=== PATIENT | male | born 1970 | race Caucasian/White ===

== ENCOUNTER 2022-01-18 16:13 | Inpatient (IN) | payer MEDICARE, OTHER ==
[~2022-01-18] VITALS: Ht 172.7 cm; Wt 81.6 kg
--- NOTE | 2022-01-18 16:36 | NUR ---
START UP SPECIALIST NOTES RECEIVED PT FROM 2 AMBULANCE PERSONNEL VIA [facility], PT IS AWAKE, SLIGHTLY SLEEPY, EASY TO AROUSE, NON VERBAL, NO SIGN OF PAIN OR DISTRESS, ASSISTED TO BED, MADE COMFORTABLE, ROOM SET UP ORIENTATION PROVIDED TO PT, REPOSITIONED FOR COMFORT, AV SHUNT TO LEFT UPPER ARM INTACT, NO BLEEDING NOTED, CALL LIGHT WITHIN REACH, VITALS TAKEN AND RECORDED, DR. VELASCO INFORMED OF PT'S ARRIVAL TO UNIT, AWAITING ADMITTING ORDERS, KEPT PT WARM AND COMFORTABLE IN BED.
--- NOTE | 2022-01-18 16:44 | NUR ---
TRANSFORMER TESTER NOTES PT SEEN AND EXAMINED BY DR. VELASCO, PT HAS SOME JERKY, TWITCHY MOVEMENTS WHEN REPOSITIONED, MD AWARE, MD ORDERED NGT PLACEMENT, ORDERS NOTED.
[2022-01-18] MEDS ORDERED: LORAZEPAM INJ 2 MG/ML VIAL IV PRN (17:00)
[2022-01-18] MEDS ORDERED: ONDANSETRON HCL/PF 4 MG/2 ML VIAL IVP PRN (17:00)
--- NOTE | 2022-01-18 17:49 | NUR ---
FEATURE WRITER NOTES ATTEMPTED NGT PLACEMENT, PT RESISTING IT, PUSHES IT AWAY AND FIGHTING IT, DR. VELASCO INFORMED AND ORDERED TO GIVE HALDOL 2MG IM ONE TIME, NOTED AND CARRIED OUT.
[2022-01-18] MEDS ORDERED: HALOPERIDOL LACTATE INJ 5 MG/ML VIAL IM ONE (18:00)
[2022-01-18] MEDS: IV D5/0.45 NACL 1,000 ML IV PRN (18:10)
[2022-01-18] MEDS: LACTULOSE 10 G/15 ML UDC (PYXIS) PO SCH ×2 (18:48→22:45)
[2022-01-18] MEDS ORDERED: GABA300C PO (18:56)
[2022-01-18] MEDS ORDERED: BUME2TAB7 PO (18:56)
[2022-01-18] MEDS ORDERED: PANT40TA49 PO (18:56)
[2022-01-18] MEDS ORDERED: CALC667C6 PO (18:56)
[2022-01-18] MEDS ORDERED: RIFA550T PO (18:56)
[2022-01-18] MEDS ORDERED: FOLI0.8T2 PO (18:56)
[2022-01-18] MEDS ORDERED: FLUT16SP16 (18:56)
[2022-01-18] MEDS ORDERED: AMLO-213 PO (18:56)
[2022-01-18] MEDS ORDERED: SEVE2.4P3 PO (18:56)
[2022-01-18] MEDS ORDERED: CARV12.52 PO (18:56)
[2022-01-18] MEDS ORDERED: TAMS-12 PO (18:56)
[2022-01-18] MEDS ORDERED: LACT10SO3 PO (18:56)
[2022-01-18] MEDS ORDERED: SUCR500T PO (18:56)
[2022-01-18] MEDS ORDERED: CETI10TA14 PO (18:56)
--- NOTE | 2022-01-18 19:00 | NUR ---
ALIGNING CHECKER NOTES PT IN BED, ASLEEP, EASILY AROUSABLE TO NAME, NODS HEAD WHEN ASKED, NON VERBAL, PER DR. VELASCO, OK TO ADMINISTER MED BY MOUTH IF MORE AWARE, PLACED PT ON A SITTING POSITION, PT ABLE TO TAKE MEDS BY MOUTH WITHOUT DIFFICULTY, ASPIRATION PRECAUTIONS OBSERVED.
[2022-01-18 20:00] VITALS: BP 143/75
--- NOTE | 2022-01-18 20:08 | NUR ---
RN OPENING NOTE PATIENT ASLEEP IN BED. A/OX0; MUMBLES. NO S/S OF DISTRESS, BREATHING WITHOUT DIFFICULTY ON ROOM AIR. RFA #18 INTACT AND PATENT W/ D5-1/2NS 75 ML/HR. TELE READS SR 65. SAFETY MEASURES IN PLACE: BED LOCKED IN LOWEST POSITION, RAILS UP X2, CALL LOPEZ WITHIN REACH. WILL CONTINUE TO MONITOR PATIENT.
[2022-01-19] VITALS: BP 137/63
[2022-01-19 04:00] VITALS: BP 140/68
[2022-01-19] MEDS: LACTULOSE 10 G/15 ML UDC (PYXIS) PO SCH ×4 (04:41→22:20)
--- NOTE | 2022-01-19 05:59 | NUR ---
RN NOTE PATIENT HAS PULLED OUT HIS IV, RAC #20. ALL IV ITEMS ACCOUNTED FOR INCLUDING IV CATH INTACT. PRESSURE DRESSING APPLIED. NEW IV ACCESS SUCCESSFULLY ADMINISTERED AT R-HAND #20. PATIENT O/W STABLE; WILL CONTINUE TO MONITOR PATIENT.
[2022-01-19 06:05] LABS: BASOPHILS # (AUTO) 0.1 K/uL (0.0-0.2); BASOPHILS % (AUTO) 2.5 % (0.0-2.0); EOSINOPHILS % (AUTO) 7.7 % (0.0-6.0); HEMATOCRIT 30 % (39-51); HEMOGLOBIN 10.6 g/dL (13.5-17.5); LYMPHOCYTES # (AUTO) 1.2 K/uL (0.8-4.8); LYMPHOCYTES % (AUTO) 24.3 % (20.0-44.0); MEAN CORPUSCULAR HGB CONC 35 g/dl (31.0-36.0); MEAN CORPUSCULAR VOLUME 91 fL (80-96); MONOCYTES # (AUTO) 0.5 K/uL (0.1-1.30); MONOCYTES % (AUTO) 9.9 % (2.0-12.0); NEUTROPHILS # (AUTO) 2.8 K/uL (1.8-8.9); NEUTROPHILS % (AUTO) 55.6 % (43.0-81.0); PLATELET COUNT (AUTO) 172 K/uL (150-450); WHITE BLOOD COUNT (AUTO) 5.1 K/uL (4.3-11.0)
[2022-01-19 06:19] LABS: CALCIUM, SERUM 9.2 mg/dL (8.5-10.1); MAGNESIUM 2.7 mg/dL (1.8-2.4); PHOSPHORUS 6.3 mg/dL (2.5-4.9); POTASSIUM 3.8 mmol/L (3.5-5.1)
[2022-01-19 06:25] LABS: CREATININE 9.2 mg/dL (0.6-1.3)
[2022-01-19 06:26] LABS: THYROID STIMULATING HORMONE 2.147 uIU/mL (0.358-3.74)
--- NOTE | 2022-01-19 06:29 | NUR ---
RN NOTE LAB CALLED WITH CRITICAL VALUE OF SERUM CREATININE OF 9.2. ON-CALL KASEY OVALLES, NOTIFIED. AWAITING ANY ORDERS AT THIS TIME. PATIENT O/W STABLE. WILL CONTINUE TO MONITOR.
--- NOTE | 2022-01-19 06:42 | NUR ---
RN CLOSING NOTE PATIENT ASLEEP IN BED. EYE OPENING WITH MUMBLING. NO S/S OF DISTRESS, BREATHING WITHOUT DIFFICULTY ON 2L NC. R-HAND #20 INTACT AND PATENT W/ D5-1/2NS @75ML/HR. RONALDO AV SHUNT INTACT AND WITHOUT SIGNS OF BLEEDING. TELE READS SB 64. SAFETY MEASURES IN PLACE: BED LOCKED AND AT LOWEST POSITION, RAILS UP X2, CALL LOPEZ WITHIN REACH. WILL ENDORSE TO NEXT SHIFT FOR LUIS EDUARDO.
--- NOTE | 2022-01-19 07:35 | NUR ---
ALARM MECHANISM ADJUSTER OPENING NOTE PATIENT ASLEEP IN BED. A/OX0; EASILY AWAKEN. NO S/S OF DISTRESS NOR SOB, BREATHING WITHOUT DIFFICULTY ON ROOM AIR. WITH R HAND G#2, INTACT AND PATENT DRAINING D5-1/2 NS 75 ML/HR. TELEMONITORING READS SINUS RHYTHM AT 83 BPM. SAFETY MEASURES IN PLACE: BED LOCKED IN LOWEST POSITION, RAILS UP X2, CALL LOPEZ AND TRAY WITHIN REACH. WILL CONTINUE TO MONITOR PATIENT.
[2022-01-19 08:00] VITALS: BP 139/70
[2022-01-19] MEDS: PANTOPRAZOLE 40 MG VIAL IV SCH (08:17)
[2022-01-19 16:00] VITALS: BP 148/81
[2022-01-19] MEDS: IV D5/0.45 NACL 1,000 ML IV PRN (16:40)
--- NOTE | 2022-01-19 19:08 | NUR ---
ASSEMBLY LINE INSPECTOR CLOSING NOTE PATIENT ASLEEP IN BED. A/OX0; EASILY AWAKEN. NO S/S OF DISTRESS NOR SOB, BREATHING WITHOUT DIFFICULTY ON ROOM AIR. NPO WAS MAINTAINED, PATIENT WAS ABLE TO TAKE LACTULOSE BUT WASNT ABLE TO PASS STOOL YET. WITH R HAND G#2, INTACT AND PATENT DRAINING D5-1/2 NS 75 ML/HR. TELEMONITORING READS SINUS RHYTHM AT 83 BPM. SAFETY MEASURES MAINTAINED: BED LOCKED IN LOWEST POSITION, RAILS UP X2, CALL LOPEZ AND TRAY WITHIN REACH. WILL ENDORSE TO DEALER SUPPORT TECHNICIAN NURSE.
--- NOTE | 2022-01-19 19:30 | NUR ---
RN OPENING NOTE PATIENT IN BED, AWAKE. PATIENT IS CONFUSED. PATIENT IS ON RA, BREATHING EVEN AND UNLABORED. NO SOB NOTED, NOT IN ANY RESPIRATORY DISTRESS. PATIENT IS NPO AT THIS TIME. R HAND G 20 WITH ONGOING D5 1/2 NS AT 75 ML/HR, INFUSING WELL. PATIENT NOT IN PAIN VIA FLACC. PER JULIO CÉSAR RN, THEY WERE UNABLE TO INSERT NGT D/T PATIENT BEING COMBATIVE, BUT WERE ABLE TO GIVE MEDS PO. SAFETY MEASURES IN PLACE: BED LOCKED AND IN LOWEST POSITION, CALL LIGHT WITHIN REACH, SIDE RAILS UP. WILL MONITOR PATIENT CLOSELY.
[2022-01-19 20:00] VITALS: BP 114/64
[2022-01-20] VITALS: BP 144/71
[2022-01-20 04:00] VITALS: BP 136/71
[2022-01-20] MEDS: LACTULOSE 10 G/15 ML UDC (PYXIS) PO SCH ×5 (04:31→23:28)
[2022-01-20] MEDS: IV D5/0.45 NACL 1,000 ML IV PRN ×2 (04:36→20:34)
[2022-01-20 06:42] LABS: ALBUMIN 3.4 g/dL (3.4-5.0); CALCIUM, SERUM 9.2 mg/dL (8.5-10.1); MAGNESIUM 2.8 mg/dL (1.8-2.4); POTASSIUM 3.8 mmol/L (3.5-5.1); TOTAL PROTEIN, SERUM 7.5 g/dL (6.4-8.2)
[2022-01-20 06:52] LABS: CREATININE 11.9 mg/dL (0.6-1.3)
--- NOTE | 2022-01-20 07:22 | NUR ---
RN CLOSING NOTE PATIENT IN BED, EYES CLOSED, EASILY AWAKENED. PATIENT REMAINS CONFUSED. PATIENT IS ON RA, BREATHING EVEN AND UNLABORED. NO SOB NOTED, NOT IN ANY RESPIRATORY DISTRESS. PATIENT IS NPO AT THIS TIME. R HAND G 20 WITH ONGOING D5 1/2 NS AT 75 ML/HR, INFUSING WELL. PATIENT NOT IN PAIN VIA FLACC. SAFETY MEASURES IN PLACE: BED LOCKED AND IN LOWEST POSITION, CALL LIGHT WITHIN REACH, SIDE RAILS UP. ALL NEEDS MET AND ATTENDED. ALL ORDERS CARRIED OUT. WILL ENDORSE TO DAY SHIFT NURSE FOR LUIS EDUARDO.
--- NOTE | 2022-01-20 07:35 | NUR ---
MINIATURE SET DESIGNER OPENING NOTE PATIENT AWAKE IN BED. A/OX1, PATIENT IS CONFUSED. NO S/S OF DISTRESS NOR SOB, BREATHING WITHOUT DIFFICULTY ON ROOM AIR. WITH R HAND G#20 INTACT AND PATENT DRAINING D5-1/2 NS 75 ML/HR. TELEMONITORING READS SINUS RHYTHM AT 85 BPM. SAFETY MEASURES IN PLACE: BED LOCKED IN LOWEST POSITION, RAILS UP X2, CALL LOPEZ AND TRAY WITHIN REACH. FOR HD TODAY. WILL CONTINUE TO MONITOR PATIENT.
[2022-01-20 08:00] VITALS: BP 160/92
[2022-01-20] MEDS: PANTOPRAZOLE 40 MG VIAL IV SCH (08:23)
[2022-01-20 10:00] LABS: BASOPHILS # (AUTO) 0.1 K/uL (0.0-0.2); BASOPHILS % (AUTO) 1.7 % (0.0-2.0); EOSINOPHILS % (AUTO) 9.5 % (0.0-6.0); HEMATOCRIT 30 % (39-51); HEMOGLOBIN 10.2 g/dL (13.5-17.5); LYMPHOCYTES # (AUTO) 1.7 K/uL (0.8-4.8); LYMPHOCYTES % (AUTO) 28.8 % (20.0-44.0); MEAN CORPUSCULAR HGB CONC 35 g/dl (31.0-36.0); MEAN CORPUSCULAR VOLUME 91 fL (80-96); MONOCYTES # (AUTO) 0.5 K/uL (0.1-1.30); NEUTROPHILS # (AUTO) 3.1 K/uL (1.8-8.9); PLATELET COUNT (AUTO) 171 K/uL (150-450); RED BLOOD CELL COUNT(AUTO) 3.25 MIL/uL (4.5-6.0)
[2022-01-20 16:00] VITALS: BP 184/91
--- NOTE | 2022-01-20 17:05 | NUR ---
RN NOTES - HELD LACTULOSE AT 1700 PER HD RN'S RECOMMENDATION.
--- NOTE | 2022-01-20 19:05 | NUR ---
MS RN CLOSING NOTE PATIENT AWAKE IN BED. A/OX1, S/P POST HD WITH 2L FLUIDS OUT. NO S/S OF DISTRESS NOR SOB, BREATHING WITHOUT DIFFICULTY ON ROOM AIR. WITH R HAND G#20 SL, PATENT/INTACT WITH L AV FISTULA. ALL NEEDS MET, ALL MEDS GIVEN. SAFETY MEASURES MAINTAINED: BED LOCKED IN LOWEST POSITION, RAILS UP X2, CALL LOPEZ AND TRAY WITHIN REACH. FOR HD TODAY. ENDORSED TO FOREIGN BANKNOTE TELLER TRADER NURSE.
--- NOTE | 2022-01-20 19:46 | NUR ---
RN OPENING NOTE; RECEIVED PATIENT IN BED AAOX2 WITH CONFUSED.THEO WELL ON RA,NO SIGN SOB/DISTRESS NOTED,BREATHING EVEN AND UNLABORED.PATIENT IS NPO AT THIS TIME. R HAND G 20 WITH ONGOING D5 1/2 NS AT 75 ML/HR, INFUSING WELL.NO SIGN OF PAIN/DISCOMFORT AT THIS TIME,SAFETY MEASURES IN PLACE: BED LOCKED AND IN LOWEST POSITION, CALL LIGHT WITHIN REACH, SIDE RAILS UP. WILL CONTINUE TO MONITOR .
[2022-01-20 20:00] VITALS: BP 165/90
[2022-01-21] MEDS: LACTULOSE 10 G/15 ML UDC (PYXIS) PO SCH ×3 (05:32→16:18)
--- NOTE | 2022-01-21 06:16 | NUR ---
RN CLOSING NOTEDS; PATIENT IN BED AAOX2 WITH CONFUSED.THEO WELL ON RA,NO SIGN SOB/DISTRESS NOTED,BREATHING EVEN AND UNLABORED.NO COMPLAIN FOR PAIN/DISCOMFORT DURING SHIFT,DUE MEDS GIVEN ORDER,ALL NEEDS ATTENDED,R HAND G 20 WITH ONGOING D5 1/2 NS AT 75 ML/HR, INFUSING WELL.SAFETY MEASURES IN PLACE: BED LOCKED AND IN LOWEST POSITION, CALL LIGHT WITHIN REACH, SIDE RAILS UP. WILL ENDORSED TO NEXT SHIFT.
--- NOTE | 2022-01-21 07:42 | NUR ---
RN OPENING NOTE RECEIVED PATIENT IN BED AWAKE, VERBALLY RESPONSIVE NO SIGNS OF ACUTE DISTRESS NOTED. STABLE ON ROOM AIR, NO SOB NOTED, BREATHING EVEN AND UNLABORED. DENIES ANY PAIN OR DISCOMFORT AT THIS TIME. NOTED WITH IV ACCESS ON RIGHT HAND #20G, INTACT AND PATENT. LEFT UPPER ARM AV SHUNT WITHOUT ANY SIGNS OF BLEEDING. WITH D5 1/2 NS @ 75 ML/HR RUNNING. SAFETY MEASURE IN PLACE. BED IN LOWEST AND LOCKED POSITION, SIDE RAILS UP X2, CALL LIGHT PLACED WITHIN EASY REACH. WILL CONTINUE TO MONITOR PATIENT.
[2022-01-21] MEDS: PANTOPRAZOLE 40 MG VIAL IV SCH (08:08)
--- NOTE | 2022-01-21 18:03 | NUR ---
TELEPHOTO ENGINEER NOTE PATIENT DISCHARGED HOME IN STABLE CONDITION. PATIENT REMAINS A/O X4, VERBALLY RESPONSIVE. NO SIGNS OF ACUTE DISTRESS NOTED. STABLE ON ROOM AIR. NO C/O PAIN OR DISCOMFORT. ALL BELONGINGS ACCOUNTED FOR, FORM SIGNED BY PATIENT. EXIT CARE FOLDER GIVEN TO PATIENT, HEALTH TEACHINGS AND DISCHARGE INSTRUCTIONS PROVIDED, WITH VERBALIZATION OF UNDERSTANDING. IV ACCESS RIGHT HAND REMOVED, NO BLEEDING NOTED, PRESSURE DRESSING APPLIED TO SITE. ARM NAME BAND REMOVED. PATIENT LEFT UNIT @1750, JENN NUNEZ ASSISTED PATIENT TO THE LOBBY VIA W/C. PICKED UP BY [facility] SIDDI[facility] VIA PRIVATE CAR. CN AWARE OF DISCHARGE.
== END 2022-01-21 17:53 | disposition home health service (06) | DRG 441 ==
LOC: MED 16:13 → TELE 16:48 → MED 01-20 11:37
PROC: 5A1D70Z Performance of Urinary Filtration, Intermittent, Less than 6 Hours Per Day (ICD-10-PCS; principal; 2022-01-20)
DX: K76.82 Hepatic encephalopathy (principal); N18.6 End stage renal disease; E72.20 Disorder of urea cycle metabolism, unspecified; Z99.2 Dependence on renal dialysis; D64.9 Anemia, unspecified; M89.8X9 Other specified disorders of bone, unspecified site
CPT/HCPCS: 36415; 80048-TC; 80053-TC; 80061-TC; 82140-TC; 83735-TC; 84100-TC; 84443-TC; 85025-TC; 86706; 87081-TC; 87340; 90935-TC; C9113; G0378; J1630; J2060; J3490

== ENCOUNTER 2022-05-26 15:55 | Inpatient (IN) | payer MEDICARE, OTHER ==
[~2022-05-26] VITALS: Ht 172.7 cm; Wt 81.6 kg
[~2022-05-26 15:55] MED LIST: AMLO-213 PO; BUME2TAB7 PO; CALC667C6 PO; CARV12.52 PO; CETI10TA14 PO; FLUT16SP16; FOLI0.8T2 PO; GABA300C PO; LACT10SO3 PO; PANT40TA49 PO; RIFA550T PO; SEVE2.4P3 PO; SUCR500T PO; TAMS-12 PO
[2022-05-26] MEDS ORDERED: ACETAMINOPHEN 325 MG TABLET PO PRN (16:30)
[2022-05-26] MEDS ORDERED: MAGNESIUM HYDROXIDE 30 ML UDC PO PRN (16:30)
[2022-05-26] MEDS ORDERED: MAG HYDROX/AL HYDROX/SIMETH 30 ML UDC PO PRN (16:30)
[2022-05-26] MEDS ORDERED: ONDANSETRON HCL/PF 4 MG/2 ML VIAL IVP PRN (16:30)
[2022-05-26] MEDS ORDERED: POLY17PO4 PO (16:36)
[2022-05-26] MEDS ORDERED: SEVE0.8P3 PO (16:36)
[2022-05-26] MEDS ORDERED: CLON1PAT14 TP (16:36)
[2022-05-26] MEDS ORDERED: CHOL100043 PO (16:36)
[2022-05-26] MEDS ORDERED: ONDA4TAB11 PO (16:36)
--- NOTE | 2022-05-26 16:49 | NUR ---
ms rn received a new direct admit from [facility],51 year old male, awake,alert,oriented x2,not in any form of distress at this time,came in w/ altered mental status, denies pain at this time. s/p hemodialysis today, will monitor patient.
--- NOTE | 2022-05-26 16:52 | NUR ---
ms rushing orders entered by rodríguez,carried out.
[2022-05-26 17:00] VITALS: BP 148/72
[2022-05-26] MEDS ORDERED: LACTULOSE 10 G/15 ML UDC (PYXIS) PO PRN (17:00)
[2022-05-26] MEDS ORDERED: POLYETHYLENE GLYCOL 3350 17 GM POWD.PACK PO PRN (17:00)
[2022-05-26] MEDS ORDERED: ONDANSETRON 4 MG TAB.RAPDIS PO PRN (17:00)
[2022-05-26 17:15] VITALS: BP 135/69
[2022-05-26 17:30] VITALS: BP 132/77
[2022-05-26] MEDS ORDERED: SEVELAMER CARBONATE 800 MG POWD.PACK PO SCH (18:00)
[2022-05-26] MEDS: HOME MED MISCELLANEOUS PO SCH ×2 (18:00→19:39)
[2022-05-26] MEDS: CALCIUM ACETATE 667 MG CAP/TAB PO SCH (18:38)
[2022-05-26] MEDS: RIFAXIMIN 550 MG TABLET PO SCH (18:38)
[2022-05-26] MEDS: CARVEDILOL 12.5 MG TABLET PO SCH (18:39)
--- NOTE | 2022-05-26 19:16 | NUR ---
RN NOTE RECEIVED PT FOR CONTINUITY OF CARE. PATIENT A/OX4 IN NO S/SX OF ACUTE DISTRESS AT THIS TIME; CURRENTLY ON ROOM AIR; WITH 02 SAT >95% AT THIS TIME.WITH IV ACCESS PATENT, INTACT AND FLUSHING WELL. WILL ENSURE SAFETY MEASURES WITHIN THE SHIFT. PATIENT BED ALARM IS ON. HEAD OF BED ELEVATED. BED IS LOCKED, IN LOWEST POSITION AND SIDE RAILS UP. CALL LIGHT WITHIN REACH OF THE PATIENT. WILL CONTINUE TO MONITOR AND REASSESS FOR ANY CHANGES AND WILL CARRY OUT ANY ONGOING AND ACTIVE MD ORDER.
[2022-05-26 20:00] VITALS: BP 103/56
[2022-05-26] MEDS: TAMSULOSIN 0.4 MG CAP.SR.24H PO SCH (21:09)
--- NOTE | 2022-05-26 22:10 | NUR ---
RN NOTE REPORT GIVEN TO WADE CARROLL FOR LUIS EDUARDO. FAST FOOD COOK AWARE.
--- NOTE | 2022-05-26 22:20 | NUR ---
CLOSING AGENT OPENING NOTES RECEIVED PATIENT IN BED AWAKE, ALERT AND ORIENTED. A/O X 4. ON RA, BREATHING EVEN AND UNLABORED, NO S/SX OF ACUTE DISTRESS AT THIS TIME WITH 02 SAT >95%. IV ACCESS RAC #20G PATENT, INTACT AND FLUSHING WELL. PATIENT WITH LEFT ARM FISTULA. SAFETY MEASURES MAINTAINED WITH BED IN LOWEST AND LOCK POSITION. BED ALARM IS ON. HEAD OF BED ELEVATED. SIDE RAILS UP X 2. CALL LIGHT AND TRAY WITHIN REACH. WILL CONTINUE WITH THE PLAN OF CARE.
[2022-05-27] VITALS: BP 149/80
[2022-05-27 04:00] VITALS: BP 146/87
[2022-05-27 05:52] LABS: BILIRUBIN,URINE NEGATIVE (NEGATIVE); COLOR,URINE YELLOW (YELLOW); LEUKOCYTE ESTERASE ,URINE NEGATIVE (NEGATIVE); NITRITE, URINE NEGATIVE (NEGATIVE); PH,URINE 8.5 (5.0-8.0); PROTEIN,URINE 2+ mg/dl (NEGATIVE); UGLUCOSE TRACE mg/dL (NEGATIVE); UROBILINOGEN,URINE 0.2 EU/dL (0.2)
[2022-05-27 06:13] LABS: BACTERIA,URINE None seen /HPF (None Seen); MUCUS,URINE Few /LPF (None Seen); RBC,URINE 0-2 /HPF (0-2); SQUAMOUS EPITHELIAL CELL,UR None Seen /HPF (None Seen); WBC,URINE NONE SEEN /HPF (0-3)
[2022-05-27 07:10] LABS: BASOPHILS # (AUTO) 0.1 K/uL (0.0-0.2); BASOPHILS % (AUTO) 1.9 % (0.0-2.0); EOSINOPHILS % (AUTO) 5.9 % (0.0-6.0); HEMATOCRIT 33 % (39-51); HEMOGLOBIN 11.2 g/dL (13.5-17.5); LYMPHOCYTES # (AUTO) 1.5 K/uL (0.8-4.8); LYMPHOCYTES % (AUTO) 32.1 % (20.0-44.0); MEAN CORPUSCULAR HGB CONC 34 g/dl (31.0-36.0); MEAN CORPUSCULAR VOLUME 92 fL (80-96); MONOCYTES # (AUTO) 0.4 K/uL (0.1-1.30); MONOCYTES % (AUTO) 8.8 % (2.0-12.0); NEUTROPHILS # (AUTO) 2.4 K/uL (1.8-8.9); NEUTROPHILS % (AUTO) 51.3 % (43.0-81.0); PLATELET COUNT (AUTO) 118 K/uL (150-450); RED BLOOD CELL COUNT(AUTO) 3.57 MIL/uL (4.5-6.0); WHITE BLOOD COUNT (AUTO) 4.7 K/uL (4.3-11.0)
--- NOTE | 2022-05-27 07:12 | NUR ---
PANCAKE PROFESSIONAL CLOSING NOTES PATIENT IN BED AWAKE, ALERT AND ORIENTED. A/O X 4. ON RA, BREATHING EVEN AND UNLABORED, NO S/SX OF ACUTE DISTRESS AT THIS TIME WITH 02 SAT 97%. MRSA DONE AND URINE COLLECTED. IV ACCESS RAC #20G PATENT, INTACT AND FLUSHING WELL. PATIENT WITH LEFT ARM FISTULA. SAFETY MEASURES MAINTAINED WITH BED IN LOWEST AND LOCK POSITION. BED ALARM IS ON. HEAD OF BED ELEVATED. SIDE RAILS UP X 2. CALL LIGHT AND TRAY WITHIN REACH. WILL ENDORSE TO THE NEXT SHIFT.
--- NOTE | 2022-05-27 07:30 | NUR ---
LEAD APPLICATIONS DEVELOPER AM NOTES RECEIVED PATIENT IN BED AWAKE, ALERT AND ORIENTED. A/O X 4. ON RA, O2 SAT 100%. RESPIRATION UNLABORED. ST HR 69 ON MONITOR. DENIES SOB OR CHEST DISCOMFORT AT THIS TIME. IV ACCESS RAC #20G PATENT, FLUSHES WELL. SITE CLEAR. PATIENT WITH LEFT ARM FISTULA. THRILL PRESENT. CARDAC DIET. NO SKIN ISSUES. BRP, STAND Y ASSIST. SAFETY MEASURES MAINTAINED WITH BED IN LOWEST AND LOCK POSITION. BED ALARM IS ON. HEAD OF BED ELEVATED. SIDE RAILS UP X 2. CALL LIGHT AND TRAY WITHIN REACH. WILL CONTINUE WITH THE PLAN OF CARE.
[2022-05-27 07:54] LABS: ALBUMIN 3.2 g/dL (3.4-5.0); BILIRUBIN,DIRECT 0.3 mg/dL (0.0-0.2); BILIRUBIN,TOTAL 0.7 mg/dL (0.2-1.0); CALCIUM, SERUM 9.2 mg/dL (8.5-10.1); MAGNESIUM 2.6 mg/dL (1.8-2.4); PHOSPHORUS 5.4 mg/dL (2.5-4.9); POTASSIUM 3.3 mmol/L (3.5-5.1); TOTAL PROTEIN, SERUM 7.1 g/dL (6.4-8.2)
[2022-05-27 08:00] VITALS: BP_SYST 163; BP_SYST 168; BP_SYST 181; BP_DIAS 80; BP_DIAS 85; BP_DIAS 93
[2022-05-27 08:01] LABS: CREATININE 8.9 mg/dL (0.6-1.3)
[2022-05-27] MEDS: RIFAXIMIN 550 MG TABLET PO SCH ×2 (08:16→16:40)
[2022-05-27] MEDS: PANTOPRAZOLE 40 MG TABLET.DR PO SCH (08:16)
[2022-05-27] MEDS: GABAPENTIN 300 MG CAPSULE PO SCH (08:16)
[2022-05-27] MEDS: VIT B CMPLX 3/FA/VIT C/BIOTIN 1 TAB TABLET PO SCH (08:16)
[2022-05-27] MEDS: HOME MED MISCELLANEOUS PO SCH ×3 (08:16→17:39)
[2022-05-27] MEDS: FLUTICASONE PROPIONATE 16 GM BOTTLE NS SCH (08:17)
[2022-05-27] MEDS: CALCIUM ACETATE 667 MG CAP/TAB PO SCH ×3 (08:21→17:39)
[2022-05-27] MEDS: CHOLECALCIFEROL (VITAMIN D 3) 400 UNIT TABLET PO SCH (08:21)
[2022-05-27] MEDS: CARVEDILOL 12.5 MG TABLET PO SCH ×2 (08:21→16:41)
[2022-05-27] MEDS: cetrizine 10 MG TABLET PO SCH (08:22)
[2022-05-27] MEDS: AMLODIPINE BESYLATE 10 MG TABLET PO SCH (08:27)
[2022-05-27] MEDS: SEVELAMER CARBONATE 800 MG TABLET PO SCH ×3 (08:36→17:39)
--- NOTE | 2022-05-27 09:30 | NUR ---
RN NOTES DUE MEDS GIVEN
[2022-05-27] MEDS: HEPARIN SODIUM, PORCINE 5000 UNITS/1 ML VIAL SQ SCH ×3 (09:42→20:31)
[2022-05-27] MEDS: LACTULOSE 10 G/15 ML UDC (PYXIS) PO SCH ×3 (11:00→21:06)
[2022-05-27 12:00] VITALS: BP 149/81
[2022-05-27 16:00] VITALS: BP 136/73
--- NOTE | 2022-05-27 16:15 | NUR ---
RN NOTES COREG NOT GIVEN. ONGOING HD
--- NOTE | 2022-05-27 18:38 | NUR ---
INSULATOR APPRENTICE NOTES PT IN BED, RESTING. ON RROM AIR. O2 SAT >98%, NO DISTRESS, NO PAIN..STAND BY ASSIST PATIENT POST HD WITH 2 LITERS OUTPUT ALL NEEDS MET. NO OTHER SIGNIFICANT CHANGE WILL ENDORSE TO NEXT SHIFT FOR LUIS EDUARDO.
--- NOTE | 2022-05-27 19:30 | NUR ---
TELE1 RN NOTES RECEIVED LAYING COMFORTABLY ON BED,A/O X4,AMBULATORY,SPEAK VIETNAMESE,UNDERSTAND YI.WITH SALINE LOCK RIGHT AC INTACT AND PATENT.WITH LEFT UPPER ARM AV FISTULA FOE HD ACCESS,GOOD BRUIT NOTED.HAD DIALYSIS TODAY,2LITERS OUT.WILL CONTINUE TO MONITOR STATUS.CALL LIGHT IN REACH,NEEDS ANTICIPATED.
[2022-05-27 20:00] VITALS: BP 117/57
--- NOTE | 2022-05-27 21:07 | NUR ---
TELE1 RN NOTES REFUSED LACTULOSE DOSE THIS TIME,COMMENTED HE'LL BE GOING FREQUENTLY IN THE BATHROOM,THAT HE WANTS TO SLEEP. HE SAID HE'LL TAKE THE 4AM DOSE
[2022-05-27] MEDS: TAMSULOSIN 0.4 MG CAP.SR.24H PO SCH (21:21)
[2022-05-28] VITALS: BP 131/75
[2022-05-28 04:00] VITALS: BP 141/64
[2022-05-28] MEDS: LACTULOSE 10 G/15 ML UDC (PYXIS) PO SCH ×2 (04:27→10:35)
--- NOTE | 2022-05-28 06:20 | NUR ---
CONSULTING IT ARCHITECT NOTES SLEEP WELL AT NIGHT,MORE ALERT THIS MORNING,ABLE TO VERBALIZED NEEDS,NO FALL,NO INJURY,CALL LIGHT IN REACH,NEEDS ATTENDED.
--- NOTE | 2022-05-28 07:15 | NUR ---
RN OPENING NOTE- PATIENT IN BED AWAKE, ALERT AND ORIENTED. ON RA, O2 SAT 100%. RESPIRATION NON- LABORED. ST HR 73 ON MONITOR. DENIES SOB OR CHEST DISCOMFORT AT THIS TIME. IV ACCESS RAC #20G PATENT, FLUSHES WELL. SITE CLEAR. PATIENT WITH LEFT ARM FISTULA. CARDAC DIET. NO TREMORS OR WITHDRAWAL. SAFETY MEASURES MAINTAINED WITH BED IN LOWEST AND LOCK POSITION. BED ALARM IS ON. HEAD OF BED ELEVATED. SIDE RAILS UP X 2. CALL LIGHT AND TRAY WITHIN REACH. WILL CONTINUE. MONITOR / ASSIST
[2022-05-28] MEDS: PANTOPRAZOLE 40 MG TABLET.DR PO SCH (07:28)
[2022-05-28] MEDS: HOME MED MISCELLANEOUS PO SCH ×2 (07:32→12:16)
[2022-05-28] MEDS: CALCIUM ACETATE 667 MG CAP/TAB PO SCH ×2 (07:34→12:16)
[2022-05-28] MEDS: SEVELAMER CARBONATE 800 MG TABLET PO SCH ×2 (07:34→12:16)
[2022-05-28 07:47] LABS: BASOPHILS # (AUTO) 0.1 K/uL (0.0-0.2); BASOPHILS % (AUTO) 1.4 % (0.0-2.0); EOSINOPHILS % (AUTO) 7.3 % (0.0-6.0); HEMATOCRIT 34 % (39-51); HEMOGLOBIN 11.4 g/dL (13.5-17.5); LYMPHOCYTES # (AUTO) 1.3 K/uL (0.8-4.8); LYMPHOCYTES % (AUTO) 28.6 % (20.0-44.0); MEAN CORPUSCULAR HGB CONC 34 g/dl (31.0-36.0); MEAN CORPUSCULAR VOLUME 93 fL (80-96); MONOCYTES # (AUTO) 0.4 K/uL (0.1-1.30); NEUTROPHILS # (AUTO) 2.5 K/uL (1.8-8.9); NEUTROPHILS % (AUTO) 53.7 % (43.0-81.0); PLATELET COUNT (AUTO) 113 K/uL (150-450); RED BLOOD CELL COUNT(AUTO) 3.64 MIL/uL (4.5-6.0); WHITE BLOOD COUNT (AUTO) 4.7 K/uL (4.3-11.0)
[2022-05-28 08:00] VITALS: BP 117/57
[2022-05-28 08:06] LABS: CALCIUM, SERUM 9.7 mg/dL (8.5-10.1); MAGNESIUM 2.7 mg/dL (1.8-2.4); PHOSPHORUS 3.6 mg/dL (2.5-4.9); POTASSIUM 4.1 mmol/L (3.5-5.1)
[2022-05-28] MEDS: VIT B CMPLX 3/FA/VIT C/BIOTIN 1 TAB TABLET PO SCH (08:58)
[2022-05-28] MEDS: AMLODIPINE BESYLATE 10 MG TABLET PO SCH (08:59)
[2022-05-28] MEDS: RIFAXIMIN 550 MG TABLET PO SCH (08:59)
[2022-05-28] MEDS: CARVEDILOL 12.5 MG TABLET PO SCH (08:59)
[2022-05-28] MEDS: GABAPENTIN 300 MG CAPSULE PO SCH (08:59)
[2022-05-28] MEDS: CHOLECALCIFEROL (VITAMIN D 3) 400 UNIT TABLET PO SCH (08:59)
[2022-05-28] MEDS: cetrizine 10 MG TABLET PO SCH (08:59)
[2022-05-28] MEDS: HEPARIN SODIUM, PORCINE 5000 UNITS/1 ML VIAL SQ SCH (09:00)
[2022-05-28] MEDS: FLUTICASONE PROPIONATE 16 GM BOTTLE NS SCH (09:08)
[2022-05-28 12:00] VITALS: BP 99/56
--- NOTE | 2022-05-28 14:56 | NUR ---
TRAFFIC CIRCUIT ENGINEER NOTE- PT DC AT THIS TIME INTO CARE OF SON. DC INSTRUCTIONS REVIEWED AND UNDERSTOOD. ID [id number] REMOVED. IV SITE REMOVED. ALL BELONGINGS RETURNED AND SIGNED FOR. NO SKIN ISSUES.NO PHOTOS REQUIRED. ESCORTED OFF UNIT BY THIS RN INTO CARE OF FAMILY.
== END 2022-05-28 14:56 | disposition home or self-care (01) | DRG 441 ==
LOC: TELE1 15:55
PROVIDERS: ADMIT Nurse Practitioner Acute Care; ATTEND Nurse Practitioner Acute Care
PROC: 5A1D70Z Performance of Urinary Filtration, Intermittent, Less than 6 Hours Per Day (ICD-10-PCS; principal; 2022-05-27)
DX: K76.82 Hepatic encephalopathy (principal); G93.41 Metabolic encephalopathy; N18.6 End stage renal disease; I13.2 Hypertensive heart and chronic kidney disease with heart failure and with stage 5 chronic kidney disease, or end stage renal disease; Z99.2 Dependence on renal dialysis; M89.8X9 Other specified disorders of bone, unspecified site; E11.22 Type 2 diabetes mellitus with diabetic chronic kidney disease; K70.30 Alcoholic cirrhosis of liver without ascites; E83.9 Disorder of mineral metabolism, unspecified; I50.9 Heart failure, unspecified; I95.3 Hypotension of hemodialysis
CPT/HCPCS: 36415; 80048-TC; 80061-TC; 80076-TC; 81001; 82140-TC; 83735-TC; 84100-TC; 85025-TC; 86706; 87081-TC; 87086-TC; 87340; 90935-TC; 93307-TC; 97116-TC; 97530-TC; G0378; J1644; J7030